=== PATIENT | male | born 1975 | race Caucasian/White ===

== ENCOUNTER 2022-08-05 11:40 | Outpatient (CLI) | payer OTHER, SELFPAY | END 2022-08-05 11:41 | disposition home or self-care (01) | PROVIDERS: PCP Family Medicine; Visit Provider Family Medicine | DX: Z00.00 Encounter for general adult medical examination without abnormal findings (principal); E03.9 Hypothyroidism, unspecified; I10 Essential (primary) hypertension; E10.9 Type 1 diabetes mellitus without complications | CPT/HCPCS: 80048; 80061; 84443; 84460 ==

== ENCOUNTER 2023-05-19 10:17 | Outpatient (CLI) | payer BC, SELFPAY | END 2023-05-19 10:18 | disposition home or self-care (01) | PROVIDERS: PCP Family Medicine; Visit Provider Family Medicine | DX: E10.9 Type 1 diabetes mellitus without complications (principal); E78.2 Mixed hyperlipidemia; I10 Essential (primary) hypertension; R53.83 Other fatigue | CPT/HCPCS: 80048; 80061; 84439; 84443; 84460 ==

== ENCOUNTER 2023-11-16 08:29 | Outpatient (CLI) | payer BC, SELFPAY | END 2023-11-16 08:30 | disposition home or self-care (01) | LOC: FBOREF 08:30 | PROVIDERS: PCP Family Medicine; Visit Provider Family Medicine | DX: E03.9 Hypothyroidism, unspecified (principal); E10.9 Type 1 diabetes mellitus without complications | CPT/HCPCS: 84443 ==

== ENCOUNTER 2024-07-12 09:10 | Outpatient (CLI) | payer BC, SELFPAY ==
[2024-07-12 13:48] LABS: Chloride* 104 mmol/L (96-114); Potassium* 4.9 mmol/L (3.6-5.1); Sodium* 139 mmol/L (135-149)
[2024-07-12 13:50] LABS: Cholesterol* 182 mg/dL (90-199)
[2024-07-12 13:51] LABS: Alanine Aminotransferase* 22 U/L (4-50); Anion Gap 5 mEq/L (7-15); Blood Urea Nitrogen* 16 mg/dL (5-24); Carbon Dioxide* 30 mmol/L (20-32); Creatinine* 0.7 mg/dL (0.5-1.5); Estimated Glomerular Filt Rate 114 ml/min; Glucose* 124 mg/dL (60-115); HDL Cholesterol* 77 mg/dL (>=40); LDL Cholesterol Calculated 68 mg/dL (<100); Triglycerides* 184 mg/dL (40-149)
[2024-07-12 14:01] LABS: Creatinine Urine 96.9 mg/dL
[2024-07-12 14:06] LABS: Microalbumin Creatinine Ratio 10 mg/g (0-30); Microalbumin Urine 1 mg/dL
== END 2024-07-12 09:11 | disposition home or self-care (01) ==
PROVIDERS: PCP Family Medicine; Visit Provider Family Medicine
DX: E10.65 Type 1 diabetes mellitus with hyperglycemia (principal); I10 Essential (primary) hypertension; E78.2 Mixed hyperlipidemia; E03.9 Hypothyroidism, unspecified; Z79.4 Long term (current) use of insulin
CPT/HCPCS: 80048; 80061; 82043; 82570; 84443; 84460